=== PATIENT | female | born 1955 | race Caucasian/White ===

== ENCOUNTER → 2017-09-23 09:57 | Outpatient (CLI) | payer OTHER, SELFPAY ==
--- NOTE | 2017-09-23 10:00 | XR_ITS ---
XR chest 2V HISTORY: Tobacco use, hypertension, weight gain ITS.REASON: Signal or exam ORDERING PHYSICIAN: Alex Parker MD PATIENT AGE: 62 years COMPARISON: 05/14/2016 FINDINGS: The cardiomediastinal silhouette and pulmonary vascularity are within normal limits. The lungs are clear without infiltrates, suspicious nodules, or pleural effusions. No acute bony abnormalities. IMPRESSION: No change with no acute finding
== END ==
PROVIDERS: PCP Emergency Medicine; Visit Provider Internal Medicine
DX: F17.200 Nicotine dependence, unspecified, uncomplicated (principal)
CPT/HCPCS: 71046

== ENCOUNTER → 2018-10-30 07:44 | Outpatient (CLI) | payer OTHER, SELFPAY ==
[2018-10-30 09:11] LABS: Alanine Aminotransferase 26 U/L (12-78); Albumin Level 3.9 gm/dL (3.4-5.0); Alkaline Phosphatase 50 U/L (46-116); Aspartate Amino Transferase 14 U/L (15-37); Bilirubin,Direct 0.1 mg/dL (0.0-0.2); Bilirubin,Indirect 0.5 mg/dL (0.0-0.9); Bilirubin,Total 0.6 mg/dL (0.2-1.0); Chol/HDL Ratio 3.5 (1-3.5); Cholesterol 144 mg/dL (140-200); HDL Cholesterol 41 mg/dL (29-89); LDL Cholesterol 81 mg/dL (0-130); Total Protein,Serum 7.2 gm/dL (6.4-8.2); Triglycerides 110 mg/dL (30-200); VLDL Cholesterol 22 mg/dL (0-40)
== END ==
PROVIDERS: Visit Provider Urology
DX: I27.20 Pulmonary hypertension, unspecified (principal); I45.10 Unspecified right bundle-branch block; E78.49 Other hyperlipidemia; I10 Essential (primary) hypertension; F17.200 Nicotine dependence, unspecified, uncomplicated
CPT/HCPCS: 36415; 80061; 80076

== ENCOUNTER → 2018-11-05 10:31 | Outpatient (CLI) | payer OTHER, SELFPAY ==
--- NOTE | 2018-11-05 10:35 | CA_ITS ---
PROCEDURE: 2-D M-mode and color Doppler study INDICATIONS FOR THE TEST: Chest pain COPDX Heart Murmur Tobacco SmokingX Palpitations Fatigue Syncope Edema HypertensionXDiabetes Mellitus Rheumatic Fever SOB GREGORY Obesity HyperlipidemiaX Family History HD Additional History RBBB,PHTN PATIENT INFORMATION HEIGHT: 64 WEIGHT:153 GENDER: Female B/P:127/77 2-D/M-MODE INTERPRETATION: 2-D MEASUREMENTS OBSERVED VALUES IN CMS Right Ventricular Dimension (RVDd) 2.6 Interventricular Septum (Thickness)(IVsd) .8 Left Ventricular Internal Dimensions(LVIDd) 5.0 Left Ventricular Posterior Wall (Thickness)(LVPWd) .8 Aortic Root 2.9 Aortic Cusp Separation 1.9 Left Atrial Dimensions (LAD) 2.3 2D 1. Left atrium is mildly enlarged, left ventricle is normal size, mild concentric left ventricular hypertrophy, visually estimated ejection fraction 55% with no regional wall motion abnormality. 2. The right atrium and right ventricle are mildly enlarged with normal contractility. 3. The aortic valve is minimally thickened and fibrosed. 4. The mitral and tricuspid valve are grossly normal. 5. The pulmonic valve is poorly present. 6. No significant pericardial effusion noted. DOPPLER INTERROGATION: Doppler interrogation of the aortic, mitral and tricuspid valvular presence of mild mitral and tricuspid regurgitation, calculated right ventricular systolic pressure is 42 mmHg consistent with moderate pulmonary hypertension, grade 1 diastolic dysfunction seen without tissue Doppler evidence of raised left atrial pressure. CONCLUSION: 1. Mildly enlarged left atrium, normal left ventricular size, mild concentric left ventricular hypertrophy, visually estimated ejection fraction 55% with no regional wall motion abnormality, grade 1 diastolic dysfunction seen without tissue Doppler evidence of raised left atrial pressure. 2. Mildly enlarged left ventricle with normal contractility. 3. Mild mitral and tricuspid regurgitation, calculated right ventricular systolic pressure is 42 mmHg consistent with moderate pulmonary hypertension. 4. No significant pericardial effusion noted.
== END ==
PROVIDERS: PCP Emergency Medicine; Visit Provider Internal Medicine
DX: I45.10 Unspecified right bundle-branch block (principal); J44.9 Chronic obstructive pulmonary disease, unspecified; F17.200 Nicotine dependence, unspecified, uncomplicated; I10 Essential (primary) hypertension; E78.5 Hyperlipidemia, unspecified; I27.20 Pulmonary hypertension, unspecified
CPT/HCPCS: 93306

== ENCOUNTER → 2018-11-30 12:45 | Outpatient (CLI) | payer OTHER, SELFPAY | PROVIDERS: PCP Emergency Medicine; Visit Provider Internal Medicine Cardiovascular Disease | DX: G47.33 Obstructive sleep apnea (adult) (pediatric) (principal); I10 Essential (primary) hypertension; I27.20 Pulmonary hypertension, unspecified; R06.02 Shortness of breath; R40.0 Somnolence | CPT/HCPCS: 95806 ==

== ENCOUNTER → 2019-08-27 11:45 | Outpatient (CLI) | payer OTHER, SELFPAY ==
--- NOTE | 2019-08-27 11:53 | CT_ITS ---
PROCEDURE: CT ELBOW LT WO CON CLINICAL HISTORY: evaluate for a coronoid fracture Injury with pain with possible fracture noted on plain film. COMPARISON: No exams were available for comparison TECHNIQUE: Axial images obtained with sagittal and coronal reformats. All CT scans at the facility use one or more dose reduction, viz: automated exposure control, ma/kV adjustment per patient size (including targeted exams where dose is matched to indication, i.e. head), or iterative reconstruction technique. FINDINGS: Images are somewhat limited due to patient's flexed elbow and internal rotation position. Nonetheless, there does appear to be a nondisplaced fracture involving the anterior aspect of the coronoid process. Intra-articular hemarthrosis noted. The no other fractures are identified. Radial head has an unremarkable appearance IMPRESSION: Nondisplaced fracture of the coronoid process of the elbow with intra-articular hemarthrosis Dictated by: Eduardo Early MD 08/27/2019 12:56 Electronically signed by Eduardo Early MD in [place] 08/27/2019 12:56
== END ==
PROVIDERS: PCP Emergency Medicine; Visit Provider Orthopaedic Surgery
DX: S42.402A Unspecified fracture of lower end of left humerus, initial encounter for closed fracture (principal)
CPT/HCPCS: 73200

== ENCOUNTER 2019-08-27 12:26 | Outpatient (RCR) | payer OTHER, SELFPAY | END 2019-08-27 13:00 | disposition home or self-care (01) | LOC: OT 12:26 | PROVIDERS: Visit Provider Orthopaedic Surgery | DX: S52.045A Nondisplaced fracture of coronoid process of left ulna, initial encounter for closed fracture (principal) | CPT/HCPCS: 97763 ==

== ENCOUNTER → 2019-09-10 09:54 | Outpatient (CLI) | payer OTHER, SELFPAY ==
--- NOTE | 2019-09-10 09:58 | XR_ITS ---
PROCEDURE: XR ELBOW LT MIN 3V CLINICAL INDICATION: LEFT elbow fracture, OUT OF BRACE COMPARISON: XR ELBOW LT MIN 3V from 08/26/2019 FINDINGS: There is interval improvement. Faint fracture line traversing the base of the coracoid process is again noted but is less evident indicating some interval healing. The displaced posterior fat pad sign indicating hemarthrosis previously is not noted. Displaced anterior fat pad sign however is apparent as before. The joint spaces are well-preserved. No significant degenerative/arthritic changes. No erosive changes evident. IMPRESSION: Continued nondisplaced fracture through base of coracoid process of ulna-fracture line appearing less evident indicating some interval healing and with some interval decrease in joint hemarthrosis Dictated by: Stuart Denis 09/10/2019 10:25 Electronically signed by Stuart Denis in [facility] 09/10/2019 10:25
== END ==
PROVIDERS: PCP Emergency Medicine; Visit Provider Orthopaedic Surgery
DX: S52.045D Nondisplaced fracture of coronoid process of left ulna, subsequent encounter for closed fracture with routine healing (principal)
CPT/HCPCS: 73080

== ENCOUNTER → 2019-09-30 10:10 | Outpatient (CLI) | payer OTHER, SELFPAY ==
--- NOTE | 2019-09-30 10:17 | XR_ITS ---
PROCEDURE: XR ELBOW LT MIN 3V CLINICAL INDICATION: lt elbow Follow-up fracture COMPARISON: XR ELBOW LT MIN 3V from 08/26/2019 XR ELBOW LT MIN 3V from 09/10/2019 FINDINGS: Nondisplaced fracture at the base of the coronoid process once again noted not significantly changed. There has been improvement in the intra-articular hemarthrosis. The joint spaces are well-preserved. No significant degenerative/arthritic changes. No erosive changes evident. Other findings:None. IMPRESSION: No change nondisplaced fracture base of the coronoid process Dictated by: Eduardo Early MD 09/30/2019 12:58 Electronically signed by Eduardo Early MD in [facility] 09/30/2019 12:58
== END ==
PROVIDERS: PCP Emergency Medicine; Visit Provider Orthopaedic Surgery
DX: S52.042A Displaced fracture of coronoid process of left ulna, initial encounter for closed fracture (principal)
CPT/HCPCS: 73080

== ENCOUNTER → 2019-11-03 08:46 | Outpatient (CLI) | payer OTHER, SELFPAY ==
--- NOTE | 2019-11-03 09:02 | XR_ITS ---
PROCEDURE: XR ELBOW LT MIN 3V CLINICAL INDICATION: elbow fx fu Follow-up fracture COMPARISON: XR ELBOW LT MIN 3V from 08/26/2019 XR ELBOW LT MIN 3V from 09/10/2019 XR ELBOW LT MIN 3V from 09/30/2019 FINDINGS: Nondisplaced fracture once again noted involving the coronoid process not significantly changed. No other significant anomalies are evident. IMPRESSION: Nondisplaced fracture at the anterior aspect of the coronoid process Dictated by: Eduardo Early MD 11/03/2019 16:24 Electronically signed by Eduardo Early MD in [facility] 11/03/2019 16:24
== END ==
PROVIDERS: Visit Provider Orthopaedic Surgery
DX: S42.402A Unspecified fracture of lower end of left humerus, initial encounter for closed fracture (principal)
CPT/HCPCS: 73080

== ENCOUNTER 2020-12-20 13:30 | Emergency (ER) | payer OTHER, SELFPAY ==
--- NOTE | 2020-12-20 13:34 | XR_ITS ---
PROCEDURE: XR SHOULDER LT MIN 2V CLINICAL INDICATION: PAIN COMPARISON: No exams were available for comparison FINDINGS: No fracture or dislocation. No lytic or blastic change. There is normal mineralization. The joint spaces are well-preserved. No significant degenerative/arthritic changes. No erosive changes evident. Other findings:None. IMPRESSION: No acute findings. Dictated by: Eduardo Early MD 12/20/2020 14:06 Eduardo Early MD in [place] 12/20/2020 14:06
[2020-12-20 13:41] VITALS: BP 146/91; PULSE 89; RESP 21; TEMP 37; O2SAT 97; BMI 34.5
--- NOTE | 2020-12-20 14:05 | HMH.EDUTC ---
[facility] [place] Disposition Clinical Impression: Shoulder strain Qualifiers: Encounter type: initial encounter Laterality: left Qualified Code(s): S46.912A - Strain of unspecified muscle, fascia and tendon at shoulder and upper arm level, left arm, initial encounter Disposition: Home, Self-Care Condition on Discharge: Good Instructions: DI for Muscle Strain, DI for Shoulder Pain Additional Instructions: *RICE, Rest the extremity, Ice 15-20 minutes 3-4 times daily, Compress- wear the eyad wrap as discussed as much as possible to help reduce swelling and pain, Elevate the extremity when at rest *Elevate when resting *Ibuprofen every 6-8 hours as needed for pain an inflammation. If need something more can take Tylenol in between doses of Ibuprofen to help Immediately follow up with your family doctor for new or worsening of symptoms, or no noticeable improvement over the next 3-5 days Follow up with your family Doctor if no improvement or any worsening of symptoms Referrals: Lawrence Aviles MD [Primary Care Provider] - As needed Time of Disposition: 14:15 Medical Decision Making - Sarath Inquiry Pt receiving controlled substance: No Sarath was queried for this patient: No Vital Signs: 12/20/20 13:41 Temperature 98.6 F Temperature Source Oral Pulse Rate [Right] 89 Respiratory Rate 21 Blood Pressure [Right Arm] 146/91 H Blood Pressure Mean [Right Arm] 109 02 Sat by Pulse Oximetry 97 Orders (Tests/Meds): ORDERS Category Date Time Status XR shoulder LT min 2V Stat Exams 12/20/20 13:34 Taken - Radiology Data #1 Image(s): Shoulder Image Reviewed: Yes I have reviewed radiologist's interpretation Preliminary Findings: No Fracture Seen IMPRESSION: No acute findings. [facility] [place] HPI - General Stated complaint: a/o 11/29 injured left shoulder Time Seen by Provider: 12/20/20 14:05 Mode of Arrival: Ambulatory Source of Information: Patient Limitations: No Limitations Description of Symptoms (Recalled from Triage Doc. by RN): pt injured her L shoulder on november 29. she was walking her dog and it took off pulling her shoulder with the leash. pt is still having L shoulder pain. HEENT Symptoms (Recalled from RN notes): No Resp Symptoms (Recalled from RN notes): No Skin Symptoms (Recalled from RN notes): No MS Symptoms (Recalled from RN notes): Yes (L shoulder pain) Functional Status (Recalled from RN notes): na - History of Present Illness Provider Complaint: Patient state that she initially hurt her shoulder about a month ago on November 29 when she was walking her dog and he jerked the leash she was holding and it jerked her left shoulder State that she has been having pain in the left shoulder ever since but this morning she was shaking out her sheets and she started having some pain again in her shoulder and wanted to get it checked out - Related Data Previous Rx's Medication Instructions Recorded furosemide 20 mg tablet See Rx Instructions .ROUTE 10/30/20 .COMPLEX #30 tab aspirin 81 mg tablet,delayed 81 mg PO DAILY #100 tab 11/23/20 release lisinopril 40 mg tablet 40 mg PO DAILY #60 tab 11/23/20 Allergies Allergy/AdvReac Type Severity Reaction Status Date / Time No Known Allergies Allergy Verified 12/20/20 13:46 - Worker's Comp Is this a Worker's Comp case?: No [facility] History - Hepatitis A Screen Drug use history?: No High risk sexual behaviors?: No History of sexually transmitted infection?: No Currently employed?: No Childcare worker?: No Do you have indoor plumbing?: Yes Do you have electricity?: Yes Attestation statement:: This patient has been screened for Hepatitis A risk factors. I have reviewed the patient's past medical history: Yes Medical History: Reports:: Chronic Obstructive Pulmonary Disease (COPD), Hyperlipidemia, Hypertension Other Medical History: Reports: Other Comment: KARIN Other Surgeries: Yes: Colonoscopy, Tubal Ligation Amputation: No Fractures: No - Socia
[2020-12-20 14:21] VITALS: BP 142/85; PULSE 88; RESP 22; TEMP 36.9
== END 2020-12-20 14:24 | disposition home or self-care (01) ==
PROVIDERS: Emergency Provider Nurse Practitioner; PCP Emergency Medicine
DX: S46.912A Strain of unspecified muscle, fascia and tendon at shoulder and upper arm level, left arm, initial encounter (principal); I10 Essential (primary) hypertension; E78.5 Hyperlipidemia, unspecified; J44.9 Chronic obstructive pulmonary disease, unspecified; Z87.891 Personal history of nicotine dependence; X50.0XXA Overexertion from strenuous movement or load, initial encounter; Y93.K1 Activity, walking an animal; Y92.89 Other specified places as the place of occurrence of the external cause
CPT/HCPCS: 73030; 99202; G0463

== ENCOUNTER → 2021-01-19 06:03 | Outpatient (CLI) | payer SELFPAY ==
--- NOTE | 2021-01-19 06:17 | CT_ITS ---
PROCEDURE: CT LUNG SCREENING CLINICAL INDICATION: CURRENT SMOKER,,CAD EVAL COMPARISON: CT LDCTLCAS LDCT FOR LUNG CA SCREEN from 09/24/2016 TECHNIQUE: The exam was performed on a GE Light Speed [address] scanner using 2.90 mGy CTDI. A low dose helical CT CHEST was performed on a multi-detector scanner. All CT scans at the facility use one or more dose reduction, viz: automated exposure control, ma/kV adjustment per patient size (including targeted exams where dose is matched to indication, i.e. head), or iterative reconstruction technique. The LDCT was performed in a facility that meets the criteria for the screening program. Data regarding this exam was submitted to ACR which is an approved registry. The order for this exam indicates that it came as a result of a lung cancer screening counseling shard decision-making visit that included all the elements required of such a visit including smoking cessation. The radiologist interpreting this exam meets the CMS criteria for the LDCT lung cancer screening program. The exam is reported using the Lung-RADS classification scale and reported to the ACR registry. NOTE: This study was performed for the specific purposes of lung cancer screening and is not an alternative to diagnostic chest CT. RADIATION DOSE: CTDI vol(CT dose Index-volume) = 2.90mG DLP (Dose Length Product) = 96.38 mGcm FINDINGS: COPD changes. Scattered small nodular opacities some of which are calcified once again noted not significantly changed. No suspicious nodules apparent. No lobar consolidation or collapse. OTHER FINDINGS: Mild ectasia of the ascending aorta at 4 cm not significantly changed coronary artery calcifications. Cholelithiasis. IMPRESSION: Lung-RADS Category 2 Benign Appearance or Behavior Follow-up: Continue annual screening with LDCT in 12 months Dictated by: Eduardo Early MD 01/22/2021 08:26 Eduardo Early MD in [facility] 01/22/2021 08:26
--- NOTE | 2021-01-19 06:17 | CT_ITS ---
PROCEDURE: CT HEART W CALCIUM SCORE CLINICAL HISTORY: CAD EVAL COMPARISON: No exams were available for comparison TECHNIQUE: Axial images obtained with sagittal and coronal reformats. All CT scans at the facility use one or more dose reduction, viz: automated exposure control, ma/kV adjustment per patient size (including targeted exams where dose is matched to indication, i.e. head), or iterative reconstruction technique. FINDINGS: The coronary artery calcium score is 164 Moderate calcific plaque burden with high cardiovascular disease risk. There is a 4 mm noncalcified nodule within the lingula nonspecific fissural nodules present in the right minor fissure region 4 mm. There are scattered calcified granulomas and calcified mediastinal and hilar lymph nodes. IMPRESSION: Moderate calcific plaque burden with high cardiovascular disease risk Dictated by: Eduardo Early MD 01/19/2021 16:55 Eduardo Early MD in [facility] 01/19/2021 16:55
== END ==
PROVIDERS: PCP Emergency Medicine; Visit Provider Internal Medicine Cardiovascular Disease
DX: Z13.6 Encounter for screening for cardiovascular disorders (principal)
CPT/HCPCS: 71271; 75571

== ENCOUNTER → 2021-01-19 06:08 | Outpatient (CLI) | payer OTHER, SELFPAY | PROVIDERS: PCP Emergency Medicine; Visit Provider Internal Medicine Cardiovascular Disease | DX: Z87.891 Personal history of nicotine dependence (principal); Z12.2 Encounter for screening for malignant neoplasm of respiratory organs | CPT/HCPCS: 71271 ==

== ENCOUNTER → 2021-02-27 11:24 | Outpatient (CLI) | payer OTHER, SELFPAY ==
--- NOTE | 2021-02-27 11:24 | NM_ITS ---
APPROVED REPORT Exam: Nuclear Stress Test Indication: short of breath,,fast heart rate Patient Location: Outpatient Stress Tech: Yessica Swann NM Tech:Elsa Gomez, ARRT, RT (R)(N) Ht: 5 ft 2 in Wt: 182 lbs Bra Size: 38d HR: 75 bpm BP: 134/84 mmHg BSA: 1.84 m2 BMI: 33.2 History: short of breath,,fast heart rate Procedure: Patient exercised on Leonidas protocol 6 minutes and sec, resting heart rate 75 bpm, resting blood pressure 134/84 mmHg, with exercise maximum heart rate achived was 152 bpm which is 97 % of the maximum predicted heart rate and blood pressure was 186/88 mmHg. Test was stopped due to brian and fatigue. Patient denied any complaint of chest pain. Patient has Adequate exercise capacity, achieved 7.0 METs of workload on treadmill, the blood pressure response to exercise was Adequate. Electrocardiogram Resting electrocardiogram shows sinus rhythm right bundle branch block, with exercise there is less than 1.[address] segment depression noted from the baseline EKG. The EKG portion of the exercise Myoview is negative for ischemia. Cardiac Stress and Resting SPECT Images: Cardiac Stress and Resting SPECT images were obtained using technetium 99m Myoview 30.7 mCi stress and 10.28 mCi at rest. Gated SPECT for analysis of segmental wall motion and calculation of the ejection fraction also done. Prone images were also obtained. Cardiac stress and resting SPECT images show uniform myocardial activity without segmental perfusion abnormality, computer derived ejection fraction is over 65% with no regional wall motion abnormality, right ventricle is normal size and contractility. However there is transient ischemic dilatation of the left ventricle seen, raising the concerns for presence of balanced ischemia. Other causes for transient ischemic dilatation is include hypertensive heart disease, diastolic dysfunction with elevated left ventricular end-diastolic pressure, microvascular disease and diabetes myelitis. Conclusion: 1. The EKG portion of the exercise Myoview is negative for ischemia, patient has adequate exercise capacity achieved 7 mets of workload on treadmill, the blood pressure response to exercise was adequate, there was no exercise-induced chest discomfort. 2. No scintigraphic evidence of reversible ischemia seen, computer derived ejection fraction is over 65% with no regional wall motion abnormality, right ventricle is normal size and contractility, however there is transient ischemic dilatation of the left ventricle seen, raising the concerns for presence of balanced ischemia, other causes for transient ischemic dilatation include elevated left ventricular end-diastolic pressure, hypertensive heart disease, microvascular disease and diabetes mellitus. 3. Clinical correlation is recommended, abnormal exercise Myoview study. Electronically signed by : Daniel Olivas MD 02/27/2021 21:30:24
--- NOTE | 2021-02-27 13:51 | HMH.ITSHM ---
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 []ROSUVASTATIN LISINOPRIL FUROSEMIDE ASA
== END ==
PROVIDERS: PCP Emergency Medicine; Visit Provider Internal Medicine Cardiovascular Disease
DX: I25.10 Atherosclerotic heart disease of native coronary artery without angina pectoris (principal); R06.00 Dyspnea, unspecified; I10 Essential (primary) hypertension; E78.5 Hyperlipidemia, unspecified; F17.200 Nicotine dependence, unspecified, uncomplicated
CPT/HCPCS: 78452; 93017; A9502

== ENCOUNTER → 2021-03-02 16:23 | Outpatient (CLI) | payer OTHER, SELFPAY ==
--- NOTE | 2021-03-02 16:23 | MR_ITS ---
PROCEDURE INFORMATION: Exam: MR Left Upper Extremity Joint Without Contrast; Shoulder Exam date and time: 03/02/2021 4:23 PM Age: 65 years old Clinical indication: Pain; Shoulder; Left; Additional info: Shoulder pain. Shoulder pain [id number] since dog jerked leash. Shoulder pain with motion. Prior x-ray 12-20-20 TECHNIQUE: Imaging protocol: MR of the Left upper extremity without contrast. Exam focused on the shoulder. COMPARISON: 1. CR XR SHOULDER LT MIN 2V 12/20/2020 1:45 PM 2. CR XR HUMERUS LT 08/26/2019 3:17 PM FINDINGS: Bones and cartilage: The undersurface of the acromion is flat, consistent with a type I acromion. There is no acute fracture or dislocation. No aggressive bone lesions are present. Joint spaces: A mild effusion involves the acromioclavicular joint without significant degenerative change. A normal amount of fluid is present in the glenohumeral joint. Glenoid labrum: Unremarkable. No evidence of tear. Bursae: A trace amount of fluid is present in the subacromial-subdeltoid bursa. Supraspinatus tendon: Moderate tendinosis involves the supraspinatus tendon. Infraspinatus tendon: Mild tendinosis involves the infraspinatus tendon. Subscapularis tendon: Mild tendinosis involves the subscapularis tendon. Teres minor tendon: No tear or significant tendinosis involves the teres minor tendon. Tendon of biceps brachii: Moderate tendinosis involves the intra-articular portion of the long head of the biceps tendon. Glenohumeral ligaments: Unremarkable. Muscles: The rotator cuff musculature demonstrates no significant edema or atrophy. Soft tissues: Unremarkable. IMPRESSION: 1. Moderate tendinosis of the supraspinatus tendon and long head of the biceps tendon. 2. No fracture.
== END ==
PROVIDERS: PCP Emergency Medicine; Visit Provider Nurse Practitioner Family
DX: S46.912A Strain of unspecified muscle, fascia and tendon at shoulder and upper arm level, left arm, initial encounter (principal)
CPT/HCPCS: 73221

== ENCOUNTER → 2021-03-08 10:35 | Outpatient (CLI) | payer OTHER, SELFPAY ==
[2021-03-08 10:51] LABS: Basophils % 0.7 % (0.1-2.0); Eosinophils # 0.1 K/mm3 (0.0-0.4); Eosinophils % 1.7 % (0.1-12.0); Hematocrit 37.9 % (37.0-47.0); Hemoglobin 12.6 g/dL (12.2-16.2); Lymphocytes # 1.9 K/mm3 (0.7-4.5); Lymphocytes % 32.1 % (10-50); Mean Corpuscular HGB Conc 33.3 g/dL (31.8-35.4); Mean Corpuscular Hemoglobin 30.2 pg (27.0-31.2); Mean Corpuscular Volume 90.7 fl (81-99); Mean Platelet Volume 8.4 fl (7.4-10.4); Monocytes # 0.3 K/mm3 (0.1-1.0); Monocytes % 4.9 % (1.7-9.3); Neutrophils # 3.5 K/mm3 (1.8-7.8); Neutrophils % 60.6 % (37.0-80.0); Platelet Count 321 K/mm3 (142-424); Red Blood Count 4.17 M/mm3 (4.20-5.40); Red Cell Distribution Width 13.9 % (11.5-17.5); White Blood Count 5.8 K/mm3 (4.8-10.8)
[2021-03-08 11:31] LABS: Chloride 104 mmol/L (98-107); Potassium 4.8 mmoL/L (3.5-5.1); Sodium 141 mmol/L (136-145)
[2021-03-08 11:34] LABS: Anion Gap 12.8 mEq/L (5-15); Blood Urea Nitrogen 14 mg/dl (7-17); Calcium 9.5 mg/dl (8.4-10.2); Carbon Dioxide 29 mmol/L (22.0-30.0); Estimated Glomerular Filt Rate 85 ml/min (>60); GFR (African American) 102 ML/MIN (>60); Glucose 119 mg/dl (74-100)
== END ==
PROVIDERS: Visit Provider Urology
DX: Z01.812 Encounter for preprocedural laboratory examination (principal); Z20.822 Contact with and (suspected) exposure to COVID-19; R06.00 Dyspnea, unspecified; R94.39 Abnormal result of other cardiovascular function study; I25.118 Atherosclerotic heart disease of native coronary artery with other forms of angina pectoris; I10 Essential (primary) hypertension; I27.20 Pulmonary hypertension, unspecified; I45.10 Unspecified right bundle-branch block; I63.9 Cerebral infarction, unspecified; E78.2 Mixed hyperlipidemia; J44.9 Chronic obstructive pulmonary disease, unspecified
CPT/HCPCS: 36415; 80048; 85025; C9803; U0003; U0005

== ENCOUNTER 2021-03-09 08:34 | Day surgery (SDC) | payer OTHER, SELFPAY ==
[2021-03-09] VITALS (12 sets, daily range): BP systolic 112–194; BP diastolic 58–101; PULSE 54–74; RESP 16–18; O2SAT 93–97; BMI 32.9
--- NOTE | 2021-03-09 07:15 | IR_ITS ---
APPROVED REPORT Patient Location: Outpatient PROCEDURES Left heart catheterization Left ventriculogram Selective coronary angiogram INDICATION High risk abnormal Myoview, Angina pectoris, Informed consent was obtained prior to the procedure. COMPLICATIONS NONE Estimated Blood Loss: LESS THAN 10 ML TECHNIQUE One percent lidocaine used to anesthetize the right anterior aspect of the wrist. The right radial artery was accessed via the Seldinger technique. A 6 [place] sheath was placed in the right radial artery. 2.5 mg of verapamil, 800 mcg of nitroglycerin, 1mg Lidocaine and 5000 U Heparin were given through the arterial sheath. The trap catheter was also used to perform left heart catheterization, left ventriculogram and selective coronary angiogram. At the end of the procedure the sheath was removed good hemostasis was achieved using Traclet band, patient was transferred to the postop holding area in stable condition. ANGIOGRAPHIC RESULTS The left main artery Normal The left anterior descending artery Normal The circumflex artery Dominant with mild 10% luminal irregularities The right coronary artery Nondominant with proximal 10 to 20% stenosis The PEDERSON ventriculogram reveals Normal 65% The left ventricular end-diastolic pressure 15 mmHg IMPRESSION Mild nonflow limiting coronary disease Normal ejection fraction Borderline elevated LVEDP PLAN 1. Medical management with evaluation of noncardiac chest pain Electronically signed by : Alex Parker MD 03/09/2021 11:15:39
== END 2021-03-09 13:49 | disposition home or self-care (01) ==
LOC: CATHLAB 08:35
PROVIDERS: PCP Emergency Medicine; Visit Provider Internal Medicine
DX: I25.118 Atherosclerotic heart disease of native coronary artery with other forms of angina pectoris (principal); E78.2 Mixed hyperlipidemia; I10 Essential (primary) hypertension; I27.20 Pulmonary hypertension, unspecified; I45.10 Unspecified right bundle-branch block; J44.9 Chronic obstructive pulmonary disease, unspecified; Z79.899 Other long term (current) drug therapy
CPT/HCPCS: 93458; 99152; C1725; C1769; J1644; Q9967

== ENCOUNTER → 2021-09-26 09:27 | Outpatient (CLI) | payer OTHER, SELFPAY ==
[2021-09-26 10:06] LABS: Basophils # 0.1 K/mm3 (0-0.2); Basophils % 2.2 % (0.1-2.0); Eosinophils # 0.1 K/mm3 (0.0-0.4); Eosinophils % 2.4 % (0.1-12.0); Hematocrit 38.1 % (37.0-47.0); Hemoglobin 12.2 g/dL (12.2-16.2); Lymphocytes # 1.6 K/mm3 (0.7-4.5); Lymphocytes % 35.8 % (10-50); Mean Corpuscular HGB Conc 31.9 g/dL (31.8-35.4); Mean Corpuscular Hemoglobin 29.6 pg (27.0-31.2); Mean Corpuscular Volume 92.9 fl (81-99); Mean Platelet Volume 8.8 fl (7.4-10.4); Monocytes # 0.2 K/mm3 (0.1-1.0); Monocytes % 5.2 % (1.7-9.3); Neutrophils # 2.5 K/mm3 (1.8-7.8); Neutrophils % 54.4 % (37.0-80.0); Platelet Count 301 K/mm3 (142-424); Red Cell Distribution Width 14.3 % (11.5-17.5); White Blood Count 4.5 K/mm3 (4.8-10.8)
[2021-09-26 10:22] LABS: Chloride 107 mmol/L (98-107); Potassium 3.8 mmoL/L (3.5-5.1); Sodium 141 mmol/L (136-145)
[2021-09-26 10:24] LABS: Blood Urea Nitrogen 14 mg/dl (7-17)
[2021-09-26 10:25] LABS: Alanine Aminotransferase 30 U/L (12-78); Albumin Level 4.3 g/dl (3.5-5.0); Alkaline Phosphatase 45 U/L (38-126); Anion Gap 10.8 mEq/L (5-15); Aspartate Amino Transferase 36 U/L (14-36); Bilirubin,Indirect 0.7 mg/dL (0.0-0.9); Bilirubin,Total 0.7 mg/dl (0.2-1.3); Bilirubin,Unconjugated 0.7 mg/dL (0.0-1.1); Calcium 8.6 mg/dl (8.4-10.2); Carbon Dioxide 27 mmol/L (22.0-30.0); Cholesterol 88 mg/dl (140-200); Estimated Glomerular Filt Rate 72 ml/min (>60); GFR (African American) 87 ML/MIN (>60); Glucose 103 mg/dl (74-100); Total Protein,Serum 6.8 g/dl (6.3-8.2); Triglycerides 117 mg/dl (30-150); VLDL Cholesterol 23 mg/dL (0-40)
[2021-09-26 10:26] LABS: Chol/HDL Ratio 2.2 (1-3.5); HDL Cholesterol 40 mg/dl (40-60)
[2021-09-26 10:42] LABS: Free T4 (Free Thyroxine) 1.17 ng/dl (0.78-2.19)
[2021-09-26 10:56] LABS: Thyroid Stimulating Hormone 3.01 uIU/mL (0.465-4.68)
[2021-09-26 16:30] LABS: Direct LDL Cholesterol < 30.00 mg/dL (100-129)
== END ==
PROVIDERS: Visit Provider Physician Assistant
DX: R06.00 Dyspnea, unspecified (principal); I25.10 Atherosclerotic heart disease of native coronary artery without angina pectoris; I27.20 Pulmonary hypertension, unspecified; I45.10 Unspecified right bundle-branch block; E78.2 Mixed hyperlipidemia; I63.9 Cerebral infarction, unspecified; J44.9 Chronic obstructive pulmonary disease, unspecified; R94.31 Abnormal electrocardiogram [ECG] [EKG]; F17.200 Nicotine dependence, unspecified, uncomplicated; Z87.891 Personal history of nicotine dependence
CPT/HCPCS: 36415; 80048; 80061; 80076; 84439; 84443; 85025

== ENCOUNTER 2022-05-03 09:11 | Emergency (ER) | payer MEDICARE, OTHER, SELFPAY ==
[2022-05-03 10:35] VITALS: BP 117/76; PULSE 123; RESP 22; TEMP 38.2; O2SAT 96; BMI 30.4
--- NOTE | 2022-05-03 10:51 | EXP.UTC ---
Discharge Plan Disposition Patient Disposition: Home, Self-Care Condition: Good Prescriptions Prescriptions: New benzonatate [benzonatate] 100 mg capsule 100 mg PO TIDP PRN (Reason: Cough) Qty: 30 0RF azithromycin [Zithromax] 250 mg tablet 250 mg PO UD DOSE PK Qty: 6 0RF Rx Instructions: Take two (2) tablets today, then one (1) tablet days #2 thru #5 methylprednisolone 4 mg Tablets,Dose Pack 4 mg PO DIRECTED Qty: 21 0RF No Action furosemide 20 mg tablet 20 mg PO DAILY Qty: 90 3RF lisinopril 40 mg tablet 40 mg PO DAILY Qty: 90 3RF rosuvastatin 20 mg tablet 20 mg PO DAILY Qty: 90 3RF aspirin 81 mg tablet,delayed release (DR/EC) 81 mg PO DAILY Qty: 90 3RF Referrals Follow up/Referrals: Lawrence Aviles MD [Primary Care Provider] - See instructions Activity Restrictions/Add. Instructions Additional Instructions/Restrictions: Drink plenty of fluids. Take tylenol or ibuprofen for pain or fever. Take the medications as directed. Follow up with your regular doctor. GO TO THE ER FOR ANY WORSENING SYMPTOMS Clinical Impressions Clinical Impression: Sinusitis, COPD (chronic obstructive pulmonary disease) Instructions Patient Instructions: DI for Chronic Obstructive Pulmonary Disease Discharge ED Provider: David Ramsey [facility] [place] General Stated complaint: sore throat, chills, cough Mode of Arrival: Ambulatory Source of Information: Patient Limitations: No Limitations Time Seen by Provider: 05/03/22 10:51 Description of Symptoms (Recalled from Triage Doc. by RN): PATIENT C/O SORE THROAT, COUGH AND CHILLS THAT STARTED LAST NIGHT HEENT Symptoms (Recalled from RN notes): Yes Resp Symptoms (Recalled from RN notes): Yes Skin Symptoms (Recalled from RN notes): No MS Symptoms (Recalled from RN notes): No Functional Status (Recalled from RN notes): WNL History of Present Illness Provider Complaint: She states that for the past 1 day she has had fever, chills, body aches, and a cough. Related Data Previous Rx's Medication Instructions Recorded aspirin 81 mg tablet,delayed 81 mg PO DAILY CAD #90 tabs 03/28/22 release furosemide 20 mg tablet 20 mg PO DAILY #90 tabs 22 lisinopril 40 mg tablet 40 mg PO DAILY #90 tabs 03/28/22 rosuvastatin 20 mg tablet 20 mg PO DAILY #90 tabs 03/28/22 azithromycin 250 mg tablet 250 mg PO UD DOSE PK #6 tabs 05/03/22 (Zithromax) benzonatate 100 mg capsule 100 mg PO TIDP PRN Cough #30 caps 05/03/22 methylprednisolone 4 mg tablets in 4 mg PO DIRECTED #21 tabs 05/03/22 a dose pack Allergies Allergy/AdvReac Type Severity Reaction Status Date / Time No Known Allergies Allergy Verified 03/28/22 08:55 Worker's Comp Is this a Worker's Comp case?: No PFSH PFSH Medical History Abnormal cardiovascular stress test Abnormal EKG Coronary artery disease Dyspnea Ex-smoker Hypertension Right bundle branch block Sinus tachycardia Surgical History (Updated 05/03/22 @ 10:51 by Josefina Cobb RN) Hx of tubal ligation Social History (Updated 05/03/22 @ 10:51 by Josefina Cobb RN) Smoking Status: Former smoker second hand exposure: No alcohol intake: never substance use type: denies use current occupational status: other Travel in the last 8 weeks: Inside the [place] household members: none housing: house current occupational exposures/hazards: No ROS Obtained: Yes All systems reviewed & no additional complaints except as documented Constitutional Constitutional: Reports chills and Reports fever(s) Eyes Eyes: Denies eye discharge ENT Ears, Nose, Mouth, and Throat: Reports as per HPI Cardiovascular Cardiovascular: Denies chest pain Respiratory Respiratory: Denies shortness of breath, Reports chest congestion, Reports cough, Denies stridor and Denies wheezing Gastrointestinal Gastrointestingal: Reports nausea; Denies
[2022-05-03 10:56] VITALS: BP 177/76; PULSE 123; RESP 22; TEMP 38.2; O2SAT 96
[2022-05-03 10:57] LABS: UTC Influenza A Antigen Negative (Negative)
[2022-05-03 10:58] LABS: UTC Influenza B Antigen Negative (Negative)
== END 2022-05-03 11:27 | disposition home or self-care (01) ==
PROVIDERS: Emergency Provider Nurse Practitioner Family; PCP Emergency Medicine
DX: J32.9 Chronic sinusitis, unspecified (principal); J44.9 Chronic obstructive pulmonary disease, unspecified
CPT/HCPCS: 87804; 99212; G0463

== ENCOUNTER 2023-05-09 08:59 | Emergency (ER) | payer MEDICARE, MEDICAID, SELFPAY ==
[2023-05-09 09:40] VITALS: BP 141/90; PULSE 74; RESP 18; TEMP 36.8; O2SAT 98; BMI 32.0
--- NOTE | 2023-05-09 09:47 | XR_ITS ---
FINAL REPORT CLINICAL HISTORY: DOG JERKED HER SHOULDER COMPARISON: None FINDINGS: RIGHT SHOULDER Three views demonstrate no acute fracture or dislocation. The visualized joint spaces are normally aligned. Mild hypertrophic changes at the AC joint. The soft tissues are unremarkable. IMPRESSION: No acute process. Reviewed, Interpreted and Dictated by Ezekiel Gordon MD Transcribed by Taylor Abrams Authenticated and [facility]
--- NOTE | 2023-05-09 09:47 | EXP.UTC ---
Discharge Plan Disposition Patient Disposition: Home, Self-Care Condition: Good Prescriptions Prescriptions: New methylprednisolone 4 mg Tablets,Dose Pack 4 mg PO DIRECTED Qty: 21 0RF No Action furosemide 20 mg tablet 20 mg PO DAILY Qty: 90 3RF lisinopril 40 mg tablet 40 mg PO DAILY Qty: 90 3RF rosuvastatin 20 mg tablet 20 mg PO DAILY Qty: 90 3RF aspirin 81 mg tablet,delayed release (DR/EC) 81 mg PO DAILY Qty: 90 3RF Referrals Follow up/Referrals: Sunday Canas DO [Staff Physician] - See instructions Gordon Ryan DO [Primary Care Provider] - See instructions Activity Restrictions/Add. Instructions Additional Instructions/Restrictions: Rest the extremity. Take the medications as directed. Follow up with Dr. Canas (orthopedics) if you continue to have symptoms. I put in a referral but you need to call his office and schedule an appointment. Follow up with your regular doctor. GO TO THE ER FOR ANY WORSENING SYMPTOMS Clinical Impressions Clinical Impression: Pain in right shoulder, Bursitis of shoulder, right Instructions Patient Instructions: Bursitis, Shoulder Tendinopathy, DI for Bursitis, DI for Shoulder Pain Discharge ED Provider: David Ramsey [facility] General Stated complaint: shoulder pain Time Seen by Provider: 05/09/23 09:47 History of Present Illness Provider Complaint: She c/o right shoulder pain for the past 1 week. She states that raising her arm over her head and other movements trigger her pain. She denies any fall or trauma, but she was walking a large dog that jerked her right arm before her symptoms began. She denies any chest pain. Related Data Previous Rx's Medication Instructions Recorded aspirin 81 mg tablet,delayed 81 mg PO DAILY CAD #90 tabs 03/28/22 release furosemide 20 mg tablet 20 mg PO DAILY #90 tabs 03/28/22 lisinopril 40 mg tablet 40 mg PO DAILY #90 tabs 03/28/22 rosuvastatin 20 mg tablet 20 mg PO DAILY #90 tabs 03/28/22 methylprednisolone 4 mg tablets in 4 mg PO DIRECTED #21 tabs 05/09/23 a dose pack Allergies Allergy/AdvReac Type Severity Reaction Status Date / Time No Known Allergies Allergy Verified 05/09/23 09:56 [facility] Disclaimer: The information contained in this section may have been updated after the patient was seen, as this information can be updated by other users. Medical History Abnormal cardiovascular stress test Abnormal EKG Coronary artery disease Dyspnea Ex-smoker Hypertension Pelvic organ prolapse quantification stage 2 cystocele Right bundle branch block Sinus tachycardia Uterine prolapse stage 2 Surgical History Hx of tubal ligation Family History Other Cancer Coronary artery disease Diabetes Heart attack Hypertension Social History Smoking Status: Former smoker tobacco type: cigarettes packs per day: 1 second hand exposure: No alcohol intake: never substance use type: denies use current occupational status: other Travel in the last 8 weeks: Inside the [place] household members: none housing: house current occupational exposures/hazards: No ROS Obtained: Yes All systems reviewed & no additional complaints except as documented Constitutional Constitutional: Denies chills and Denies fever(s) Eyes Eyes: Denies eye discharge ENT Ears, Nose, Mouth, and Throat: Denies dizziness, Denies otalgia, Denies neck pain and Denies sore throat Cardiovascular Cardiovascular: Denies chest pain Respiratory Respiratory: Denies shortness of breath, Denies chest congestion, Denies cough, Denies stridor and Denies wheezing Gastrointestinal Gastrointestingal: Denies nausea or vomiting Musculoskeletal Musculoskeletal: Reports as per HPI,
[2023-05-09 10:36] VITALS: BP 141/90; PULSE 74; RESP 18; TEMP 36.8; O2SAT 98
== END 2023-05-09 10:36 | disposition home or self-care (01) ==
PROVIDERS: Emergency Provider Nurse Practitioner Family; PCP Internal Medicine
DX: M25.511 Pain in right shoulder (principal); M75.51 Bursitis of right shoulder; I25.10 Atherosclerotic heart disease of native coronary artery without angina pectoris; I11.9 Hypertensive heart disease without heart failure; Z87.891 Personal history of nicotine dependence; X50.0XXA Overexertion from strenuous movement or load, initial encounter
CPT/HCPCS: 73030; 99212; 99214; G0463

== ENCOUNTER 2024-03-29 09:22 | Outpatient (CLI) | payer MEDICARE, MEDICAID, SELFPAY ==
[2024-03-29 09:40] LABS: Basophils # 0.1 K/mm3 (0-0.2); Basophils % 1.4 % (0.1-2.0); Eosinophils # 0.1 K/mm3 (0.0-0.4); Eosinophils % 1.4 % (0.1-12.0); Hematocrit 40.8 % (37.0-47.0); Hemoglobin 13.6 g/dL (12.2-16.2); Lymphocytes # 1.7 K/mm3 (0.7-4.5); Lymphocytes % 30.7 % (10-50); Mean Corpuscular HGB Conc 33.4 g/dL (31.8-35.4); Mean Corpuscular Hemoglobin 30.7 pg (27.0-31.2); Mean Platelet Volume 8.2 fl (7.4-10.4); Monocytes # 0.3 K/mm3 (0.1-1.0); Monocytes % 5.3 % (1.7-9.3); Neutrophils # 3.4 K/mm3 (1.8-7.8); Neutrophils % 61.2 % (37.0-80.0); Platelet Count 293 K/mm3 (142-424); Red Blood Count 4.43 M/mm3 (4.20-5.40); Red Cell Distribution Width 13.4 % (11.5-17.5); White Blood Count 5.6 K/mm3 (4.8-10.8)
[2024-03-29 10:28] LABS: Alanine Aminotransferase 27 U/L (12-78); Albumin Level 4.7 g/dl (3.5-5.0); Alkaline Phosphatase 47 U/L (38-126); Anion Gap 11.9 mEq/L (5-15); Aspartate Amino Transferase 34 U/L (14-36); Bilirubin,Direct 0.2 mg/dl (0.0-0.4); Bilirubin,Indirect 0.7 mg/dL (0.0-0.9); Bilirubin,Total 0.9 mg/dl (0.2-1.3); Bilirubin,Unconjugated 0.7 mg/dL (0.0-1.1); Blood Urea Nitrogen 19 mg/dl (7-17); Calcium 9.8 mg/dl (8.4-10.2); Carbon Dioxide 26 mmol/L (22.0-30.0); Chloride 107 mmol/L (98-107); Chol/HDL Ratio 2.4 (1-3.5); Cholesterol 112 mg/dl (140-200); Estimated Glomerular Filt Rate 62 ml/min (>60); GFR (African American) 76 ML/MIN (>60); Glucose 115 mg/dl (74-100); HDL Cholesterol 47 mg/dl (40-60); Magnesium 1.9 mg/dl (1.6-2.3); Potassium 3.9 mmoL/L (3.5-5.1); Sodium 141 mmol/L (136-145); Total Protein,Serum 7.4 g/dl (6.3-8.2); Triglycerides 123 mg/dl (30-150); VLDL Cholesterol 25 mg/dL (0-40)
[2024-03-29 10:39] LABS: Direct LDL Cholesterol 38.08 mg/dL (100-129)
[2024-03-29 10:44] LABS: Free T4 (Free Thyroxine) 1.16 ng/dl (0.78-2.19)
[2024-03-29 10:59] LABS: Thyroid Stimulating Hormone 3.43 uIU/mL (0.465-4.68)
[2024-03-29 11:41] LABS: Hemoglobin A1C 6.1 % (4.0-6.0)
== END 2024-03-29 23:59 | disposition home or self-care (01) ==
LOC: LAB 09:23
PROVIDERS: PCP Nurse Practitioner Family; Visit Provider Physician Assistant
DX: I10 Essential (primary) hypertension (principal); J44.9 Chronic obstructive pulmonary disease, unspecified; E78.2 Mixed hyperlipidemia; R94.31 Abnormal electrocardiogram [ECG] [EKG]; I25.10 Atherosclerotic heart disease of native coronary artery without angina pectoris; I51.89 Other ill-defined heart diseases; R73.09 Other abnormal glucose
CPT/HCPCS: 36415; 80048; 80061; 80076; 83036; 83735; 84439; 84443; 85025